=== PATIENT | male | born 1950 | race Caucasian/White ===

== ENCOUNTER → 2018-01-22 | Outpatient (CLI) | payer MEDICARE, BC ==
--- NOTE | 2018-01-22 15:01 | US ---
EXAMINATION TYPE: US kidneys/renal and bladder DATE OF EXAM: 01/22/2018 COMPARISON: NONE CLINICAL HISTORY: Abnormal Results of kidney function studies R94.4. EXAM MEASUREMENTS: Right Kidney: 11.4 x 4.7 x 5.4 cm Left Kidney: 11.0 x 6.2 x 4.7 cm Right Kidney: no hydronephrosis or masses seen Left Kidney: no hydronephrosis or masses seen Bladder: wnl Bilateral Jets seen: yes There is no evidence for hydronephrosis at this point in time. No nephrolithiasis is seen. No todd s are identified. The urinary bladder is anechoic. Bilateral ureteral jets are seen. IMPRESSION: No distinct abnormality seen.
== END | disposition home or self-care (01) ==
LOC: RADUSWWP 14:10
PROVIDERS: ATTEND Internal Medicine
DX: R94.4 Abnormal results of kidney function studies (principal)
CPT/HCPCS: 76770

== ENCOUNTER → 2019-04-28 | Day surgery (SDC) | payer MEDICARE ==
[2019-04-24 10:11] VITALS: BMI 28.7
[~2019-04-28] MED LIST: LACTATED RINGERS 1,000 ML IV SCH; LIDOCAINE 1% 20 ML VIAL (10MG/ML) FOR IV START INTRADERMA PRN; LIDOCAINE 1% INJ 10MG/ML (20 ML MDV) ONE; PROPOFOL 10 MG/ML 20 ML VIAL IV ONE
[2019-04-28 12:14] VITALS: TEMP 98.3
--- NOTE | 2019-04-28 12:52 | P.GSHP ---
History of Present Illness H&P Date: 04/28/19 Chief Complaint: Colon cancer screening 68-year-old male here today for colonoscopy. Last colonoscopy 3-5 years ago. Family history of colon cancer in his mother. No bowel related complaints. Past Medical History Past Medical History: GERD/Reflux, Hyperlipidemia, Hypertension Additional Past Medical History / Comment(s): bicuspid valve, hx. colon polyps History of Any Multi-Drug Resistant Organisms: None Reported Additional Past Surgical History / Comment(s): colonoscopies, left testicle removed, throat polyp removed Past Anesthesia/Blood Transfusion Reactions: Motion Sickness, Postoperative Nausea & Vomiting (PONV) Smoking Status: Never smoker - Past Family History Mother Family Medical History: Cancer Additional Family Medical History / Comment(s): colon Brother(s) Family Medical History: Cancer Additional Family Medical History / Comment(s): colon Medications and Allergies Home Medications Medication Instructions Recorded Confirmed Type Atorvastatin [Lipitor] 40 mg PO DAILY 04/24/19 04/24/19 History Carvedilol [Coreg] 3.125 mg PO BID 04/24/19 04/24/19 History Famotidine [Pepcid] 40 mg PO BID PRN 04/24/19 04/28/19 History Valsartan [Diovan] 80 mg PO DAILY 04/24/19 04/28/19 History Allergies Allergy/AdvReac Type Severity Reaction Status Date / Time No Known Allergies Allergy Verified 04/24/19 09:50 Surgical - Exam Vital Signs Temp Pulse Resp BP Pulse Ox 98.3 F 78 16 132/74 96 04/28/19 11:57 04/28/19 11:57 04/28/19 11:57 04/28/19 11:57 04/28/19 11:57 Physical exam: General: Well-developed, well-nourished HEENT: Normocephalic, sclerae nonicteric Abdomen: Nontender, nondistended Extremities: No edema Neuro: Alert and oriented Assessment and Plan (1) Colon cancer screening Narrative/Plan: Will proceed with colonoscopy Current Visit: Yes Status: Acute Code(s): Z12.11 - ENCOUNTER FOR SCREENING FOR MALIGNANT NEOPLASM OF COLON SNOMED Code(s): 852334276
--- NOTE | 2019-04-28 13:06 | P.PCN ---
Date of Procedure: 04/28/19 Procedure(s) Performed: PREOPERATIVE DIAGNOSIS: Colon cancer screening, family history of colon cancer POSTOPERATIVE DIAGNOSIS: Tortuous colon unable to advance beyond splenic flexure PROCEDURE: Colonoscopy to the splenic flexure ANESTHESIA: MAC SURGEON: Rodolfo Tovar M.D. SPECIMENS: None ENDOSCOPIC PROCEDURE: The patient was placed on the endoscopy table in the left decubitus position. The Olympus colonoscope was inserted into the anus and passed under direct visualization to the region of the splenic flexure. The patient had a very tight hairpin turn at this location. There was tortuosity noted at the distal transverse colon. No obstruction was seen however. Despite multiple maneuvers gradually advance into the transverse colon. We were forced to withdraw from this point. The visualized descending sigmoid and rectum appeared normal. There was no visible diverticulosis. Digital rectal examination was normal. The patient was taken to the recovery room in stable condition per anesthesia guidelines. RECOMMENDATIONS: Will discuss options a barium enema with this patient postoperatively. Tentatively plan follow-up attempts at colonoscopy 5 years.
[2019-04-28 13:30] VITALS: BP 124/77; PULSE 71; RESP 18
--- NOTE | 2019-04-28 16:13 | XR ---
EXAMINATION TYPE: XR abdomen complete w decub DATE OF EXAM: 04/28/2019 COMPARISON: NONE HISTORY: Incomplete barium enema TECHNIQUE: Supine, upright, and left side down lateral decubitus views of the abdomen are obtained. FINDINGS: Air-filled loops of small and large bowel are noted. There is no evidence for pneumoperitoneum. The bowel gas pattern is unremarkable as there is air throughout nondilated small and large bowel. No mass effects are seen. No unusual calcifications. IMPRESSION: Unremarkable study, retained air due to patient's partial colonoscopy.
--- NOTE | 2019-04-29 12:57 | FL ---
EXAMINATION TYPE: FL barium enema DATE OF EXAM: 04/29/2019 COMPARISON: NONE HISTORY: Failed colonoscopy, family history colon cancer TECHNIQUE: A double contrast barium enema study is performed. FINDINGS: [employer] view of the abdomen shows overall non-obstructive bowel gas pattern. No evidence of any mass, obstructing or constricting lesion throughout the colon. No significant div erticular disease is noted. Question small filling defect in the cecum difficult to exclude a subcent imeter polyp versus retained stool, additional small filling defects at the splenic flexure thought t o be mobile. There is redundancy of the sigmoid colon could limit evaluation. The appendix is filled with contrast and is unremarkable the cecum is normal. Colon is distensible. 6 minutes 56 seconds fluoroscopy time. 33 intraoperative images obtained. IMPRESSION: Difficult to exclude subcentimeter polyp in the cecum and additional findings above.
== END ==
LOC: ORWHC2ENDO 11:32
PROVIDERS: ATTEND Surgery
DX: Z12.11 Encounter for screening for malignant neoplasm of colon (principal); Z53.09 Procedure and treatment not carried out because of other contraindication; Q43.9 Congenital malformation of intestine, unspecified; Z80.0 Family history of malignant neoplasm of digestive organs; Z86.010 Personal history of colon polyps; I10 Essential (primary) hypertension; E78.5 Hyperlipidemia, unspecified; K21.9 Gastro-esophageal reflux disease without esophagitis; Q23.1 Congenital insufficiency of aortic valve; Z90.79 Acquired absence of other genital organ(s); Z98.890 Other specified postprocedural states; Z79.899 Other long term (current) drug therapy
CPT/HCPCS: 74021; J2001; J2704; G0121; 74270

== ENCOUNTER → 2019-09-25 | Outpatient (CLI) | payer MEDICARE ==
--- NOTE | 2019-09-25 11:16 | XR ---
Lumbar spine HISTORY: Spondylosis of the lumbar spine 3 views of the lumbar spine There is multilevel spondylosis. Lumbar vertebral bodies show preserved height, alignment, and bone m ineralization. There is loss of disc height L4-5, L5-S1. Sclerosis in the posterior elements is consi stent with facet arthropathy. Atherosclerotic calcification in the aortoiliac distribution. IMPRESSION: Degenerative disc disease and facet arthropathy.
== END | disposition home or self-care (01) ==
LOC: RADXRMAIN 09:18
PROVIDERS: ATTEND Internal Medicine
DX: M51.36 Other intervertebral disc degeneration, lumbar region (principal); M47.816 Spondylosis without myelopathy or radiculopathy, lumbar region
CPT/HCPCS: 72100

== ENCOUNTER → 2020-03-01 | Outpatient (CLI) | payer MEDICARE ==
--- NOTE | 2020-03-01 11:37 | CT ---
EXAMINATION TYPE: CT abdomen w con DATE OF EXAM: 03/01/2020 COMPARISON: None at this institution. HISTORY: Liver mass CT DLP: 935.2 mGycm, Automated Exposure Control for Dose Reduction was Utilized. CONTRAST: CT scan of the abdomen is performed with oral and with IV Contrast, patient injected with 100 mL of I sovue 300. FINDINGS: LUNG BASES: No significant abnormality is appreciated. LIVER/GB: Slightly lobulated 2.1 x 1.9 cm lesion in the hepatic dome has Hounsfield units between 14 and 3 consistent with benign thin-walled cyst on axial image 9. Liver overall somewhat small in size. Gallbladder contracted in appearance without surrounding inflammatory change. There is 1.0 cm low de nse lesion posterior segment right hepatic lobe inferiorly on axial image 32 too small to further luis manuel racterize but presumed benign. No biliary dilatation is evident. Liver is somewhat low dense relative to spleen suggesting mild diffuse fatty infiltration. PANCREAS: No significant abnormality is seen. SPLEEN: No significant abnormality is seen. ADRENALS: No significant abnormality is seen. KIDNEYS: Symmetric corticomedullary uptake and excretion without concerning solid or cystic renal mas s or hydronephrosis seen bilaterally subcentimeter low dense lesion medially left kidney series 5 timothy ge 33 too small to further characterize presumed benign. BOWEL: Normal appearing appendix from base of cecum in the right lower quadrant. Oral contrast does n ot reach level of the terminal ileum. No suspicious small or large bowel dilatation. LYMPH NODES: No suspicious greater than 1 cm abdominal lymph nodes are appreciated. OSSEOUS STRUCTURES: Spine is straightened. Moderate disc space narrowing at L4-L5 level.. OTHER: No significant additional abnormality is seen. IMPRESSION: Small size liver with simple appearing thin-walled 2.0 cm hepatic dome cyst and 1.0 cm lo w dense lesion presumed benign. No worrisome focal intrahepatic mass or intrahepatic ductal dilatatio n is seen.
== END | disposition home or self-care (01) ==
LOC: RADCTMAIN 09:57
PROVIDERS: ATTEND Surgery
DX: K86.89 Other specified diseases of pancreas (principal)
CPT/HCPCS: 82565; 84520; 74160; 36415; Q9967

== ENCOUNTER 2021-12-26 04:46 | Emergency (ER) | payer MEDICARE ==
[2021-12-26 04:51] VITALS: TEMP 98.5
--- NOTE | 2021-12-26 05:18 | ED ---
Lower Extremity Injury HPI - General Chief Complaint: Extremity Injury, Lower Stated Complaint: Left Leg Pain Time Seen by Provider: 12/26/21 05:13 Source: patient, RN notes reviewed, old records reviewed Mode of arrival: ambulatory Limitations: no limitations - History of Present Illness Initial Comments: This is a 71-year-old male to the ER for evaluation today. Is coming to the woke up with left calf pain this morning. No trauma or injury noted. is very adamant that the patient was very sedentary life and she is concern for blood clot in this leg. Patient's pain in his Continues here in the emergency department. Patient denies any trauma recent surgeries travel history. No prior history of blood clots, no chest pain or shortness of breath MD Complaint: other (Left knee pain) -: hour(s) Injury: Leg: Left, Knee: Left Type of Injury: unknown, other (woke up with pain) Severity: moderate Severity scale (1-10): 7 Improves With: nothing Worsens With: movement, palpation Context: other (0) Other Symptoms: other (0) Associated Symptoms: numbness, tingling Treatments Prior to Arrival: other (0) - Related Data Home Medications Medication Instructions Recorded Confirmed Atorvastatin [Lipitor] 40 mg PO DAILY 04/24/19 04/24/19 Famotidine [Pepcid] 40 mg PO BID PRN 04/24/19 04/28/19 Valsartan [Diovan] 80 mg PO DAILY 04/24/19 04/28/19 carvediloL [Coreg] 3.125 mg PO BID 04/24/19 04/24/19 Allergies Allergy/AdvReac Type Severity Reaction Status Date / Time No Known Allergies Allergy Verified 12/26/21 04:48 Review of Systems ROS Statement: Those systems with pertinent positive or pertinent negative responses have been documented in the HPI. ROS Other: All systems not noted in ROS Statement are negative. Past Medical History Past Medical History: GERD/Reflux, Hyperlipidemia, Hypertension Additional Past Medical History / Comment(s): bicuspid valve, hx. colon polyps History of Any Multi-Drug Resistant Organisms: None Reported Additional Past Surgical History / Comment(s): colonoscopies, left testicle removed, throat polyp removed Past Anesthesia/Blood Transfusion Reactions: Motion Sickness, Postoperative Nausea & Vomiting (PONV) Past Alcohol Use History: Occasional Past Drug Use History: None Reported - Past Family History Mother Family Medical History: Cancer Additional Family Medical History / Comment(s): colon Brother(s) Family Medical History: Cancer Additional Family Medical History / Comment(s): colon General Exam Limitations: no limitations General appearance: alert, in no apparent distress Head exam: Present: atraumatic, normocephalic, normal inspection Eye exam: Present: normal appearance, PERRL, EOMI. Absent: scleral icterus, conjunctival injection, periorbital swelling ENT exam: Present: normal exam, mucous membranes moist Neck exam: Present: normal inspection. Absent: tenderness, meningismus, lymphadenopathy Respiratory exam: Present: normal lung sounds bilaterally. Absent: respiratory distress, wheezes, rales, rhonchi, stridor Cardiovascular Exam: Present: regular rate, normal rhythm, normal heart sounds. Absent: systolic murmur, diastolic murmur, rubs, gallop, clicks GI/Abdominal exam: Present: soft, normal bowel sounds. Absent: distended, tenderness, guarding, rebound, rigid Extremities exam: Present: normal inspection, full ROM, tenderness (Left knee.Left calf), normal capillary refill. Absent: pedal edema, joint swelling, calf tenderness Back exam: Present: normal inspection Neurological exam: Present: alert, oriented X3, CN II-XII intact Psychiatric exam: Present: normal affect, normal mood Skin exam: Present: warm, dry, intact, normal color. Absent: rash Course Vital Signs 12/26/21 12/26/21 04:49 07:52 Temperature 98.5 F Pulse Rate 80 65 Respiratory 16 15 Rate Blood Pressure 167/83 113/71 O2 Sat by Pulse 96 96 Oximetry - Reevaluation(s) Reevaluation #1: 12/26/21 05:56 medical record is reviewed Reevaluation #2: 12/26/21 Patient informed results and questions answered Medical Decision Making - Medical Decision Making 71 male to the ED for left lower extremity pain. Patient concern for DVT x-ray are negative patient can be discharged home - Radiology Data Radiology results: report reviewed (X-ray left lower extremity, ultrasound left lower extremity negative for DVT), image reviewed Disposition Clinical Impression: Left leg pain Disposition: HOME SELF-CARE Condition: Good Instructions (If sedation given, give patient instructions): Leg Pain (ED) Is patient prescribed a controlled substance at d/c from ED?: No Referrals: Scottie Garza MD [Primary Care Provider] - 1-2 days Time of Disposition: 07:45
--- NOTE | 2021-12-26 05:33 | XR ---
EXAMINATION TYPE: XR knee complete LT DATE OF EXAM: 12/26/2021 COMPARISON: NONE HISTORY: Calf pain TECHNIQUE: 3 views FINDINGS: There is some spurring on the superior patella. I see no fracture nor dislocation. The join t spaces are normal. No sign of joint effusion. IMPRESSION: Minor spurring on the patella. No fracture.
--- NOTE | 2021-12-26 07:30 | US ---
EXAMINATION TYPE: US venous doppler duplex LE LT DATE OF EXAM: 12/26/2021 7:16 AM COMPARISON: NONE CLINICAL HISTORY: dvt,pain. Calf pain that started this morning. No redness or swelling. Not on blo od thinners. SIDE PERFORMED: Left TECHNIQUE: The lower extremity deep venous system is examined utilizing real time linear array sonog pamela with graded compression, doppler sonography and color-flow sonography. VESSELS IMAGED: Common Femoral Vein Deep Femoral Vein Greater Saphenous Vein * Femoral Vein Popliteal Vein Small Saphenous Vein * Proximal Calf Veins (* superficial vessels) Left Leg: Negative for DVT IMPRESSION: 1. Left lower extremity ultrasound negative for deep venous thrombosis.
[2021-12-26 07:53] VITALS: BP 113/71; PULSE 65; RESP 15
== END 2021-12-26 07:53 | disposition home or self-care (01) ==
LOC: EC 04:46
DX: M79.662 Pain in left lower leg (principal); I10 Essential (primary) hypertension; E78.5 Hyperlipidemia, unspecified; K21.9 Gastro-esophageal reflux disease without esophagitis; Z79.899 Other long term (current) drug therapy
CPT/HCPCS: 99283

== ENCOUNTER 2022-02-20 11:11 | Emergency (ER) | payer MEDICARE ==
[2022-02-20 11:42] VITALS: BP 126/54; PULSE 93; RESP 16; TEMP 98
[2022-02-20] MEDS ORDERED: DIPH,PERTUS(ACELL)TETVAC-LF 0.5 ML VIAL IM ONE (11:58)
[2022-02-20] MEDS ORDERED: BACITRACIN OINT 1 EACH PACKET TOPICAL ONE (11:59)
--- NOTE | 2022-02-20 11:59 | ED ---
Animal Bite HPI - General Chief Complaint: Animal Bite Stated Complaint: cat bite rt heel Time Seen by Provider: 02/20/22 11:49 Source: patient, RN notes reviewed Mode of arrival: ambulatory Limitations: no limitations - History of Present Illness Initial Comments: This a 71-year-old male presents emergency Department with chief complaint of cat Bite. Patient states his bit on the heel of his foot by his own cat was up-to-date vaccinations patient is unsure when his last tetanus was. Patient states his happened 2 nights ago no redness is advised, emergency from for evaluation. Patient offers no other complaints. - Related Data Home Medications Medication Instructions Recorded Confirmed Atorvastatin [Lipitor] 40 mg PO DAILY 04/24/19 04/24/19 Famotidine [Pepcid] 40 mg PO BID PRN 04/24/19 04/28/19 Valsartan [Diovan] 80 mg PO DAILY 04/24/19 04/28/19 carvediloL [Coreg] 3.125 mg PO BID 04/24/19 04/24/19 Previous Rx's Medication Instructions Recorded Amoxic-Pot Clav 875-125Mg 1 tab PO Q12HR #20 tab 02/20/22 [Augmentin 875-125] Allergies Allergy/AdvReac Type Severity Reaction Status Date / Time No Known Allergies Allergy Verified 12/26/21 04:48 Review of Systems ROS Statement: Those systems with pertinent positive or pertinent negative responses have been documented in the HPI. ROS Other: All systems not noted in ROS Statement are negative. Past Medical History Past Medical History: GERD/Reflux, Hyperlipidemia, Hypertension Additional Past Medical History / Comment(s): bicuspid valve, hx. colon polyps History of Any Multi-Drug Resistant Organisms: None Reported Additional Past Surgical History / Comment(s): colonoscopies, left testicle removed, throat polyp removed Past Anesthesia/Blood Transfusion Reactions: Motion Sickness, Postoperative Nausea & Vomiting (PONV) Past Alcohol Use History: Occasional Past Drug Use History: None Reported - Past Family History Mother Family Medical History: Cancer Additional Family Medical History / Comment(s): colon Brother(s) Family Medical History: Cancer Additional Family Medical History / Comment(s): colon General Exam Limitations: no limitations General appearance: alert, in no apparent distress Head exam: Present: atraumatic, normocephalic, normal inspection Respiratory exam: Present: normal lung sounds bilaterally. Absent: respiratory distress, wheezes, rales, rhonchi, stridor Cardiovascular Exam: Present: regular rate, normal rhythm, normal heart sounds. Absent: systolic murmur, diastolic murmur, rubs, gallop, clicks Extremities exam: Present: other (Right heel multiple puncture wounds no erythema no drainage tendernesserythematous streaking noted) Course Vital Signs 02/20/22 11:39 Temperature 98 F Pulse Rate 93 Respiratory 16 Rate Blood Pressure 126/54 O2 Sat by Pulse 97 Oximetry Medical Decision Making - Medical Decision Making Patient was given up-to-date tetanus, patient was discharge on oral antibiotics wound care injection for via return parameters provided. Disposition Clinical Impression: Cat bite Disposition: HOME SELF-CARE Condition: Stable Instructions (If sedation given, give patient instructions): Animal Bite (ED) Additional Instructions: Please return to the Emergency Department if symptoms worsen or any other concerns. Prescriptions: Amoxic-Pot Clav 875-125Mg [Augmentin 875-125] 1 tab PO Q12HR #20 tab Is patient prescribed a controlled substance at d/c from ED?: No Referrals: Scottie Garza MD [Primary Care Provider] - 1-2 days Time of Disposition: 11:59
== END 2022-02-20 12:19 | disposition home or self-care (01) ==
LOC: EC 11:11
DX: S91.359A Open bite, unspecified foot, initial encounter (principal); Z23 Encounter for immunization; E78.5 Hyperlipidemia, unspecified; I10 Essential (primary) hypertension; Z79.02 Long term (current) use of antithrombotics/antiplatelets; W55.01XA Bitten by cat, initial encounter
CPT/HCPCS: 90471; 90715; 99283

== ENCOUNTER → 2023-04-06 | Outpatient (CLI) | payer MEDICARE ==
--- NOTE | 2023-04-09 10:26 | MR ---
EXAMINATION TYPE: MR Prostate wo/w con DATE OF EXAM: 04/06/2023 9:44 AM COMPARISON: 05/03/2022. CLINICAL INDICATION:Male, 72 years old with history of R97.20 ELEVATED PROSTATE SPECIFIC ANTIGEN; Abib vated PSA TECHNIQUE: Multi-planar, multi-sequence imaging of the pelvis is performed prior to and following the uncomplicated administration of bolus intravenous gadolinium. CONTRAST: 10 Gadavist Interpretive Criteria: PI-RADS v2.1 SERUM PSA: 6.5 on 02/05/2023. 6 9 on 03/20/2020. SURGICAL PATHOLOGY: No data available. FINDINGS: Prostatic dimensions: 5.3 x 5.1 x 4.6 cm. Ellipsoid Volume:65.10 (PSA density=0.10 ng/mL/mL) CENTRAL GLAND (Central and Transition Zones/CZ+TZ): Multiple bilateral, heterogenous appearing hypertrophic stromal nodules, without suspicious lesion. M edian lobe hypertrophy with protrusion into the base of the bladder. (PI-RADS 2) PERIPHERAL ZONE (PZ): Bilateral linear, indistinct wedgelike areas of low ADC, and low T2 signal, No evidence of masslike a bnormality, or localized perfusional hypervascularity, to further suggest a focus of clinically signi ficant prostate cancer. (PI-RADS 2) SEMINAL VESICLES (SV): Symmetric and unremarkable. PERIPROSTATIC TISSUES: Unremarkable. LYMPH NODES: No enlarged pelvic lymph node. REMAINING PELVIS: Bladder wall is within normal limits given distention. No abnormal free or organized intrapelvic fluid collection. No pathologic bowel dilation or mural thickening. No hernia visualized OSSEOUS STRUCTURES: No suspicious osseous abnormality. IMPRESSION: 1. No specific features for high-risk prostate cancer. Maximum PI-RADS score: 2. 2. Moderate BPH, estimated gland volume 65.10 mL.
== END | disposition home or self-care (01) ==
LOC: RADMRIMAIN 08:32
PROVIDERS: ATTEND Urology
DX: N40.0 Benign prostatic hyperplasia without lower urinary tract symptoms (principal); R97.20 Elevated prostate specific antigen [PSA]
CPT/HCPCS: 72197; A9585

== ENCOUNTER 2023-06-17 16:58 | Emergency (ER) | payer MEDICARE ==
--- NOTE | 2023-06-17 17:27 | ED ---
Chest Pain HPI - General Chief Complaint: Chest Pain Stated Complaint: Chest Pain Time Seen by Provider: 06/17/23 17:08 Source: patient, RN notes reviewed, old records reviewed Mode of arrival: ambulatory Limitations: no limitations - History of Present Illness Initial Comments: This is a 72-year-old male to the ER today. [place] regards to chest pain today. Patient was watching some TV tonight sitting in his chair and began to have chest pain. Anterior chest pain with history of high blood pressure and high cholesterol. Patient has no anxiety, no current shortness of breath no diaphoresis during the event no recent cough congestion travel history or sick contacts no fevers. Patient took an aspirin when chest pain started and states that pain currently here on arrival in the ER is resolved MD Complaint: chest pain -: hour(s) Onset: during rest, during exertion Pain Location: substernal, left chest Severity: mild Severity scale (1-10): 2 Quality: tightness Consistency: intermittent, now resolved Improves With: nothing Worsens With: nothing Anginal Symptoms: diaphoresis, dyspnea, sense of impending doom Other Symptoms: palpitations Treatments Prior to Arrival: none - Related Data Home Medications Medication Instructions Recorded Confirmed Valsartan [Diovan] 80 mg PO DAILY 04/24/19 06/17/23 carvediloL [Coreg] 3.125 mg PO BID 04/24/19 06/17/23 Atorvastatin Calcium [Lipitor] 80 mg PO DAILY 06/17/23 06/17/23 Ezetimibe [Zetia] 10 mg PO DAILY 06/17/23 06/17/23 Allergies Allergy/AdvReac Type Severity Reaction Status Date / Time No Known Allergies Allergy Verified 06/17/23 17:07 Review of Systems ROS Statement: Those systems with pertinent positive or pertinent negative responses have been documented in the HPI. ROS Other: All systems not noted in ROS Statement are negative. EKG Findings - EKG Comments: EKG Findings:: EKG sinus 69 DE 193 QRS 106 QTc 430 Past Medical History Past Medical History: GERD/Reflux, Hyperlipidemia, Hypertension Additional Past Medical History / Comment(s): bicuspid valve, hx. colon polyps History of Any Multi-Drug Resistant Organisms: None Reported Additional Past Surgical History / Comment(s): colonoscopies, left testicle removed, throat polyp removed Past Anesthesia/Blood Transfusion Reactions: Motion Sickness, Postoperative Nausea & Vomiting (PONV) Past Psychological History: No Psychological Hx Reported Past Alcohol Use History: Occasional Past Drug Use History: None Reported - Past Family History Mother Family Medical History: Cancer Additional Family Medical History / Comment(s): colon Brother(s) Family Medical History: Cancer Additional Family Medical History / Comment(s): colon General Exam Limitations: no limitations General appearance: alert, in no apparent distress Head exam: Present: atraumatic, normocephalic, normal inspection Eye exam: Present: normal appearance, PERRL, EOMI. Absent: scleral icterus, conjunctival injection, periorbital swelling ENT exam: Present: normal exam, mucous membranes moist Neck exam: Present: normal inspection. Absent: tenderness, meningismus, lymphadenopathy Respiratory exam: Present: normal lung sounds bilaterally. Absent: respiratory distress, wheezes, rales, rhonchi, stridor Cardiovascular Exam: Present: regular rate, normal rhythm, normal heart sounds. Absent: systolic murmur, diastolic murmur, rubs, gallop, clicks GI/Abdominal exam: Present: soft, normal bowel sounds. Absent: distended, tenderness, guarding, rebound, rigid Extremities exam: Present: normal inspection, full ROM, normal capillary refill. Absent: tenderness, pedal edema, joint swelling, calf tenderness Back exam: Present: normal inspection Neurological exam: Present: alert, oriented X3, CN II-XII intact Psychiatric exam: Present: normal affect, normal mood Skin exam: Present: warm, dry, intact, normal color. Absent: rash Course Vital Signs 06/17/23 06/17/23 06/17/23 17:03 17:30 18:00 Temperature 97.7 F Pulse Rate 73 65 71 Respiratory 16 18 18 Rate Blood Pressure 124/70 133/71 118/74 O2 Sat by Pulse 97 97 97 Oximetry 06/17/23 06/17/23 18:30 19:00 Temperature 98 F Pulse Rate 65 68 Respiratory 18 18 Rate Blood Pressure 121/83 122/66 O2 Sat by Pulse 98 98 Oximetry - Reevaluation(s) Reevaluation #1: Medical records reviewed Reevaluation #2: Patient symptoms improved Reevaluation #3: Patient informed of results and questions answered Reevaluation #4: Was pt. sent in by a medical professional or institution (, PA, CREW LEADER, urgent care, hospital, or jail...) When possible be specific @ -no Did you speak to anyone other than the patient for history (EMS, parent, family, police, friend...)? What history was obtained from this source @ -no Did you review nursing and triage notes (agree or disagree)? Why? @ -agree Are old charts reviewed (outside hosp., previous admission, EMS record, old EKG, old radiological studies, urgent care reports/EKG's, jail records)? Report findings @ -yes Differential Diagnosis (chest pain, altered mental status, abdominal pain women, abdominal pain men, vaginal bleeding, weakness, fever, dyspnea, syncope, headache, dizziness, GI bleed, back pain, seizure, CVA, palpatations, mental health, musculoskeletal)? @ -prior EKG interpreted by me (3pts min.). @ -yes X-rays interpreted by me (1pt min.). @ -yes negative for acute disease CT interpreted by me (1pt min.). @ -no U/S interpreted by me (1pt. min.). @ -no What testing was considered but not performed or refused? (CT, X-rays, U/S, labs)? Why? @ -none What meds were considered but not given or refused? Why? @ -none Did you discuss the management of the patient with other professionals (professionals i.e. , PA, CREW LEADER, lab, RT, psych nurse, social director, sales support coordinator, teacher, forest fire officer, top case assembler)? Give summary @ -no Was smoking cessation discussed for >3mins.? @ -no Was critical care preformed (if so, how long)? @ -no Were there social determinants of health that impacted care today? How? (Homelessness, low income, unemployed, alcoholism, drug addiction, transportation, low edu. Level, literacy, decrease access to med. care, care home, rehab)? @ -none Was there de-escalation of care discussed even if they declined (Discuss DNR or withdrawal of care, Hospice)? DNR status @ -no What co-morbidities impacted this encounter? (DM, HTN, Smoking, COPD, CAD, Cancer, CVA, ARF, Chemo, Hep., AIDS, mental health diagnosis, sleep apnea, morbid obesity)? @ -none Was patient admitted / discharged? Hospital course, mention meds given and route, prescriptions, significant lab abnormalities, going to OR and other pertinent info. @ -72 male to ER with acute chest pain history of blood pressure and cholesterol. Patient coming in with chest pain that was sudden onset while watching TV tonight. Chest pain resolved on arrival to the ER he has no other complaints, patient has normal testing here in the ER including EKG and troponin and prefers discharge home Discharge Undiagnosed new problem with uncertain prognosis? @ -no Drug Therapy requiring intensive monitoring for toxicity (Heparin, Nitro, Insulin, Cardizem)? @ -no Were any procedures done? @ -no Diagnosis/symptom? @ -Chest pain Acute, or Chronic, or Acute on Chronic? @ -Acute Uncomplicated (without systemic symptoms) or Complicated (systemic symptoms)? @ -Complicated Side effects of treatment? @ -no Exacerbation, Progression, or Severe Exacerbation? @ -exacerbation Poses a threat to life or bodily function? How? (Chest pain, [place], [place], pneumonia, PE, COPD, DKA, ARF, appy, cholecystitis, CVA, Diverticulitis, Homicidal, Suicidal, threat to staff... and all critical care pts) @ -yes with significant chest pain Reevaluation #5: Differential Chest Pain: Stable Angina, Unstable Angina, STEMI, NSTEMI Aortic Dissection, Pneumothorax, Musculoskeletal, Esophageal Spasm GERD, Cholecystitis, Pancreatitis, Zoster, th is is not meant to be an all-inclusive list. Chest Pain MDM - MDM 72 male with chest pain that occurred while watching TV tonight. Patient has history of high cholesterol hypertension. Patient has no acute findings here in the ER feels well prefers discharge home does not want to stay in the hospital for observation. Chest pain is resolved Disposition Clinical Impression: Chest pain Disposition: HOME SELF-CARE Condition: Good Instructions (If sedation given, give patient instructions): Chest Pain (ED) Is patient prescribed a controlled substance at d/c from ED?: No Referrals: Scottie Garza MD [Primary Care Provider] - 1-2 days Time of Disposition: 19:15
[2023-06-17 17:41] LABS: Basophils % (A) 1 %; Eosinophils # (A) 0.1 k/uL (0-0.7); Eosinophils % (A) 2 %; HCT 40.3 % (39.0-53.0); HGB 13.9 gm/dL (13.0-17.5); Lymphocytes # (A) 1.9 k/uL (1.0-4.8); Lymphocytes % (A) 35 %; MCH 31.9 pg (25.0-35.0); MCHC 34.4 g/dL (31.0-37.0); MCV 92.8 fL (80.0-100.0); Mean Platelet Volume 7.8; Monocytes # (A) 0.4 k/uL (0-1.0); Monocytes % (A) 7 %; Neutrophils # (A) 2.9 k/uL (1.3-7.7); Neutrophils % (A) 54 %; Platelet Count 158 k/uL (150-450); RBC 4.35 m/uL (4.30-5.90); RDW 12.6 % (11.5-15.5); WBC 5.4 k/uL (3.8-10.6)
[2023-06-17 17:47] VITALS: RESP 18
[2023-06-17 17:49] LABS: Partial Thromboplastin Time 22.8 sec (22.0-30.0); Prothrombin Time 10.9 sec (10.0-12.5)
--- NOTE | 2023-06-17 18:14 | XR ---
EXAMINATION TYPE: XR chest 2V DATE OF EXAM: 06/17/2023 5:57 PM CLINICAL INDICATION:Male, 72 years old with history of Chest Pain; [facility] COMPARISON: None TECHNIQUE: XR chest 2V Frontal and lateral views of the chest. FINDINGS: Lungs/Pleura: There is no evidence of pleural effusion, focal consolidation, or pneumothorax. Pulmonary vascularity: Unremarkable. Heart/mediastinum: Cardiomediastinal silhouette is unremarkable. Musculoskeletal: No acute osseous pathology. IMPRESSION: No acute cardiopulmonary disease/process.
[2023-06-17 18:24] LABS: ALT 37 U/L (4-49); AST 32 U/L (17-59); African American GFR (CKD) 68 (>60 ml/min/1.73 sqM); Albumin 4.1 g/dL (3.5-5.0); Alkaline Phosphatase 63 U/L (38-126); Anion Gap 7 mmol/L; Blood Urea Nitrogen 24 mg/dL (9-20); Calcium 9.3 mg/dL (8.4-10.2); Carbon Dioxide 24 mmol/L (22-30); Chloride 107 mmol/L (98-107); Glucose 95 mg/dL (74-99); Lipase 113 U/L (23-300); Magnesium 1.9 mg/dL (1.6-2.3); Non-African American GFR(CKD) 59 (>60 ml/min/1.73 sqM); Potassium 4.3 mmol/L (3.5-5.1); Sodium 138 mmol/L (137-145); Total Bilirubin 0.7 mg/dL (0.2-1.3); Total Protein 6.7 g/dL (6.3-8.2)
[2023-06-17 18:30] LABS: NT-Pro-B-Type Natriuretic Pept 48 pg/mL
[2023-06-17 19:47] VITALS: BP 122/66; PULSE 68; TEMP 98
== END 2023-06-17 19:26 | disposition home or self-care (01) ==
LOC: EC 16:58
DX: R07.89 Other chest pain (principal)
CPT/HCPCS: 36415; 71046; 80053; 83690; 83735; 83880; 84484; 85025; 85610; 85730; 93005; 99285